=== PATIENT | female | born 1990 | race Two or more races ===

== ENCOUNTER 2024-07-31 06:43 | Day surgery (SDC) | payer OTHER ==
[~2024-07-31 06:43] MED LIST: PEPCID AC20 MG PO
[2024-07-31] MEDS ORDERED: CEFOXITIN SODIUM 2,000 MG VIAL IV ONE (12:48)
[2024-07-31] MEDS ORDERED: POVIDONE-IODINE 118 ML BOTT TOP ONE (13:12)
[2024-07-31] MEDS ORDERED: MONODOX100 MG PO (14:11)
[2024-07-31] MEDS ORDERED: NAPR500T14 PO (14:12)
[2024-07-31] MEDS ORDERED: PROMETHAZINE HCL 50 MG/ML AMPUL IM ONE (14:15)
[2024-07-31] MEDS ORDERED: MORPHINE SULFATE 4 MG/ML VIAL IV PRN (14:15)
[2024-07-31] MEDS ORDERED: MORPHINE SULFATE 4 MG/ML VIAL IV ONE (15:15)
== END 2024-07-31 16:30 | disposition home or self-care (01) ==
LOC: CIR.AMB 06:43
PROVIDERS: ATTEND Obstetrics & Gynecology
DX: D25.0 Submucous leiomyoma of uterus (principal); N84.0 Polyp of corpus uteri; N92.5 Other specified irregular menstruation; Z91.018 Allergy to other foods

== ENCOUNTER 2024-08-04 22:18 | Emergency (ER) | payer OTHER ==
[~2024-08-04] VITALS: Ht 149.9 cm; Wt 46.3 kg
[~2024-08-04 22:18] MED LIST changes: +MONODOX100 MG PO; +NAPR500T14 PO
[2024-08-05] MEDS ORDERED: KETOROLAC TROMETHAMINE 60 MG VIAL IM STA (01:23)
[2024-08-05] MEDS ORDERED: KETOROLAC TROMETHAMINE 60 MG VIAL IM ONE (01:30)
[2024-08-05 02:20] LABS: BASO % 0.4 % (0.1-1.2); EOS # 0.18 (0.04-0.54); EOS % 2.7 % (0.7-7.0); HEMATOCRIT 36.9 % (34.1-44.9); HEMOGLOBIN 12.5 g/dL (11.2-15.7); LYMPH # 2.23 (1.18-3.74); LYMPH % 32.9 % (19.3-53.1); MEAN CORPUSCULAR HEMOGLOBIN 28.2 pg (25.6-32.2); MONO # 0.52 (0.24-0.82); MONO % 7.7 % (4.7-12.5); NEUT # 3.81 (1.56-6.13); NEUT % 56.2 % (34.0-71.1); PLATELET COUNT 224 K/uL (163-369); RED BLOOD COUNT 4.43 M/uL (3.93-5.22); RED CELL DISTRIBUTION WIDTH 17.6 % (11.6-14.4)
[2024-08-05 02:25] LABS: INR 0.97; PARTIAL THROMBOPLASTIN TIME 26.2 SECONDS (22.0-34.0); PROTHROMBIN TIME 10.6 SECONDS (9.0-11.5)
== END 2024-08-05 03:36 | disposition home or self-care (01) ==
LOC: ER 22:18
DX: G89.18 Other acute postprocedural pain (principal); R10.2 Pelvic and perineal pain; Z90.13 Acquired absence of bilateral breasts and nipples; Z91.018 Allergy to other foods; Z91.012 Allergy to eggs